=== PATIENT | male | born 1965 | race American Indian/Alaskan Native ===

== ENCOUNTER 2020-09-16 12:10 | Emergency (ER) | payer SELFPAY ==
[2020-09-16] MEDS ORDERED: SODIUM CHLORIDE 0.9% 1000 ML 1,000 ML IV ONE (12:15)
[2020-09-16 12:17] VITALS: BP 136/74
--- NOTE | 2020-09-16 12:40 | Emergency Department Report ---
HPI - General Chief Complaint: Altered Mental Status Time Seen by Provider: 09/16/20 12:14 - HPI HPI: This is a 55-year-old -[place] male who presents to the emergency department initially altered and unresponsive. The patient was brought in by a "friend" who says that they were watching television when he suddenly went unresponsive. At first the patient is completely unresponsive with snoring respirations. He was arousable but is altered with severe diaphoresis. The patient was brought into bed #20, given a dose of IV Narcan, and immediately became awake and oriented. The patient admits to taking some type of narcotic pill that he says was 7.5-325 mg. I asked if it was a Percocet but the patient said "yes." At this point the patient is able to answer orientation questions correctly. ED Review of Systems ROS: Stated complaint: OD Other details as noted in HPI Comment: Unobtainable due to pts medical conditions Physical Exam - Physical Exam Vital Signs: Vital Signs 09/16/20 12:16 Temperature 96.5 F L Pulse Rate 114 H Respiratory 17 Rate Blood Pressure 136/74 [Left] O2 Sat by Pulse 99 Oximetry Physical Exam: GENERAL: Patient is diaphoretic, ill-appearing. HENT: Normocephalic. Atraumatic. Patient has moist mucous membranes. EYES: Extraocular motions are intact. Pupils are constricted, pinpoint, but equal. NECK: Supple. Trachea is midline. CHEST/LUNGS: Clear to auscultation. There is no respiratory distress noted. HEART/CARDIOVASCULAR: Regular. There is mild to moderate tachycardia. ABDOMEN: Abdomen is soft, nontender. Patient has normal bowel sounds. SKIN: Extremely diaphoretic. NEURO: Patient is awake but confused. Babbling nonsensically. MUSCULOSKELETAL: There is no obvious deformity. There is no limitation range of motion. ED Course Vital Signs 09/16/20 12:16 Temperature 96.5 F L Pulse Rate 114 H Respiratory 17 Rate Blood Pressure 136/74 [Left] O2 Sat by Pulse 99 Oximetry ED Medical Decision Making - Medical Decision Making This patient was brought in by a female who was identified as a "friend." Initially the patient had snoring respirations and was completely unresponsive. They were able to wake him up enough to get him out of the car and onto a stretcher. He presents into room #20 extremely diaphoretic and fatigued. When he is aroused he is babbling nonsensically. He had pinpoint but equal pupils. An IV was placed and the patient was given 2 mg of Narcan and immediately the patient became aroused and oriented. The patient was AAO x3. He gave the name listed on this chart but we have reason to believe that this is a fake name as the patient says that he did not want his to find out that he was here. Labs and IV fluid resuscitation were ordered. As soon as the nurse left the room the patient jumped up off the gurney and eloped from the emergency department. Critical care attestation.: If time is entered above; I have spent that time in minutes in the direct care of this critically ill patient, excluding procedure time. ED Disposition Clinical Impression: Opiate overdose Qualifiers: Encounter type: initial encounter Injury intent: undetermined intent Qualified Code(s): T40.604A - Poisoning by unspecified narcotics, undetermined, initial encounter Disposition: DC-07 LEFT AGAINST MED ADVICE Is pt being admited?: No Condition: Stable Time of Disposition: 15:18
[2020-09-16] MEDS ORDERED: NALOXONE 2 MG/2 ML INJ ONE (12:54)
[2020-09-16] MEDS ORDERED: NALOXONE 2 MG/2 ML INJ IV ONE (13:24)
== END 2020-09-16 12:30 | disposition left against medical advice (07) ==
LOC: ED 12:10
DX: T40.604A Poisoning by unspecified narcotics, undetermined, initial encounter (principal)
CPT/HCPCS: 96374; 99283; J2310; J7030